=== PATIENT | male | born 1995 | race African-American/Black ===

== ENCOUNTER 2016-12-12 20:54 | Emergency (ER) | payer OTHER ==
[2016-12-12 21:10] VITALS: BP 119/67
--- NOTE | 2016-12-12 22:26 | ER Document Report ---
ED GI/ - General Chief Complaint: Penile Problem Stated Complaint: PENIAL PROBLEM Notes: The patient is a 21-year-old male who presents with 2 days of mild swelling of his foreskin. He is able to retract and reduce his foreskin. He denies pain, dysuria, hematuria, flank pain, sores or concerned about STDs. TRAVEL OUTSIDE OF THE [place] IN LAST 30 DAYS: No - Related Data Allergies/Adverse Reactions: No Known Allergies Allergy (Unverified 12/12/16 21:07) Past Medical History - General Information source: Patient - Social History Smoking Status: Unknown if Ever Smoked Family History: Reviewed & Not Pertinent Patient has suicidal ideation: No Patient has homicidal ideation: No Renal/ Medical History: Denies: Hx Peritoneal Dialysis Review of Systems - Review of Systems Notes: REVIEW OF SYSTEMS: CONSTITUTIONAL: -fevers, -chills EENT: -eye pain, -difficulty swallowing, -nasal congestion CARDIOVASCULAR:-chest pain, -syncope. RESPIRATORY: -cough, -SOB GASTROINTESTINAL: -abdominal pain, -nausea, -vomiting, -diarrhea GENITOURINARY: -dysuria, -hematuria, +swollen foreskin MUSCULOSKELETAL: -back pain, -neck pain HEMATOLOGIC: -easy bruising or bleeding. LYMPHATIC: -swollen, enlarged glands. NEUROLOGICAL: -altered mental status or loss of consciousness, -headache, - neurologic symptoms PSYCHIATRIC: -anxiety, -depression. ALL OTHER SYSTEMS REVIEWED AND NEGATIVE. Physical Exam - Vital signs Vitals: Temp Pulse Resp BP Pulse Ox 98.4 F 50 L 15 119/67 100 12/12/16 21:07 12/12/16 21:07 12/12/16 21:07 12/12/16 21:07 12/12/16 21:07 - Notes Notes: PHYSICAL EXAMINATION: GENERAL: Well-appearing, well-nourished and in no acute distress. HEAD: Atraumatic, normocephalic. EYES: Pupils equal round and reactive to light, extraocular movements intact, sclera anicteric, conjunctiva are normal. ENT: nares patent, oropharynx clear without exudates. Moist mucous membranes. NECK: Normal range of motion, supple without lymphadenopathy LUNGS: Breath sounds clear to auscultation bilaterally and equal. No wheezes rales or rhonchi. HEART: Regular rate and rhythm without murmurs ABDOMEN: Soft, nontender, normoactive bowel sounds. No guarding, no rebound. No masses appreciated. : mild swelling of foreskin, no evidence of paraphimosis or phimosis; no penile discharge or lesions EXTREMITIES: Normal range of motion, no pitting or edema. No cyanosis. NEUROLOGICAL: Cranial nerves grossly intact. Normal speech, normal gait. Normal sensory, motor, and reflex exams. PSYCH: Normal mood, normal affect. SKIN: Warm, Dry, normal turgor, no rashes or lesions noted. Course - Re-evaluation Re-evalutation: No evidence of phimosis or paraphimosis. Total patient to begin Motrin and ice packs for any swelling. Given return precautions and he understands. - Vital Signs Vital signs: Temp Pulse Resp BP Pulse Ox 98.4 F 50 L 15 119/67 100 12/12/16 21:07 12/12/16 21:07 12/12/16 21:07 12/12/16 21:07 12/12/16 21:07 Discharge - Discharge Clinical Impression: Foreskin swelling Condition: Stable Disposition: HOME, SELF-CARE Additional Instructions: Motrin and ice packs for any swelling. If you are unable to reduce your foreskin, then return immediately to the emergency room. NORMAL EXAM AND WORKUP: At this time, your examination and workup show no significant abnormality. No significant abnormal physical findings were noted. All laboratory, EKG, and imaging (x-ray, CT scans, ultrasound) studies that were ordered show no significant abnormality. Although your examination and all studies that were ordered showed no significant abnormal finding, there are no examinations and no studies that are 100% accurate. There is always the possibility that some abnormality could exist and not be detected with physical examination or within the limits and capabilities of laboratory and other studies. You should return or follow up as you were instructed on your visit today for further evaluation if your symptoms do not resolve.
== END 2016-12-12 22:30 | disposition home or self-care (01) ==
LOC: ER 20:54
DX: L98.9 Disorder of the skin and subcutaneous tissue, unspecified (principal)
CPT/HCPCS: 99283

== ENCOUNTER 2018-07-10 11:54 | Emergency (ER) | payer SELFPAY ==
--- NOTE | 2018-07-10 12:57 | ER Document Report ---
ED Extremity Problem, Lower - General Chief Complaint: Knee Pain Stated Complaint: KNEE PAIN Time Seen by Provider: 07/10/18 12:41 Mode of Arrival: Ambulatory Information source: Patient Notes: Patient is a 22-year-old male comes emergency room complaining of right knee pain. Patient states that 2 months ago while he was still in the he was doing jujitsu and somehow his right foot became lodged and the opponent has through patient one way and his knee went the other way and he feels like it was hyperextended at that point. He states that he felt a pop at the time and that it shifted out of joint and then went back into the joint. He saw the doctors they did x-rays and physical exam told him that they did not believe any ligaments were involved but they sent him to physical therapy and treating with pain medications which he says neither one helped. By the time they decided they wanted to do an MRI his time in the was up and so an MRI was never performed. He states that it is now become basically life changing and that he cannot do any climbing his stairs running jumping or any other normal activities of daily living because of the pain and discomfort he has in the right leg. Patient points to the lateral side of the right knee and states this is where it hurts specifically. States there is no other place on the knee that hurts but that right lateral side. Pain increases when he does any ambulation or places weight upon it. As long as he is not ambulatory and is sitting down or laying down there is no pain. He denies any recent injury. TRAVEL OUTSIDE OF THE [place] IN LAST 30 DAYS: No - HPI Patient complains to provider of: Injury, Pain, Swelling Location: Knee - 2 months ago Where: Other - In the during a workout Onset/Duration: Sudden, Persistent Quality of pain: Sharp, Stabbing Pain Level: 3 Context: Twisted Recent injury: Yes Associated symptoms: [place] a pop, Painful ambulation Exacerbated by: Movement, Walking Relieved by: Rest - Related Data Allergies/Adverse Reactions: No Known Allergies Allergy (Unverified 12/12/16 21:07) Past Medical History - General Information source: Patient - Social History Smoking Status: Never Smoker Cigarette use (# per day): No Chew tobacco use (# tins/day): No Smoking Education Provided: No Frequency of alcohol use: None Drug Abuse: None Family History: Reviewed & Not Pertinent Patient has suicidal ideation: No Patient has homicidal ideation: No Renal/ Medical History: Denies: Hx Peritoneal Dialysis Review of Systems - Review of Systems Constitutional: No symptoms reported EENT: No symptoms reported Cardiovascular: No symptoms reported Respiratory: No symptoms reported Gastrointestinal: No symptoms reported Genitourinary: No symptoms reported Male Genitourinary: No symptoms reported Musculoskeletal: See HPI, Joint pain, Muscle pain Skin: No symptoms reported Hematologic/Lymphatic: No symptoms reported Neurological/Psychological: No symptoms reported -: Yes All other systems reviewed and negative Physical Exam - Vital signs Vitals: Temp Pulse Resp BP Pulse Ox 98.6 F 54 L 12 122/63 96 07/10/18 12:09 07/10/18 12:09 07/10/18 12:09 07/10/18 12:09 07/10/18 12:09 Interpretation: Normal, Bradycardic - Is an athlete heart rate probably normal variant - Notes Notes: PHYSICAL EXAMINATION: GENERAL: Well-nourished well-developed 22-year-old male in no apparent distress. HEAD: Atraumatic, normocephalic. EYES: Pupils equal round and reactive to light, extraocular movements intact, sclera anicteric, conjunctiva are normal. ENT: Nares patent, oropharynx clear without exudates. Moist mucous membranes. NECK: Normal range of motion, supple LUNGS: Breath sounds clear to auscultation bilaterally and equal. No wheezes rales or rhonchi. HEART: Bradycardic rate and rhythm without murmurs Musculoskeletal: Examination of area of concern is patient's right knee. Right knee appears to be normal in appearance on visual inspection when compared to the left they both look the same. There is no current swelling or edema. There is no notable effusion. There is no swelling. Patient displays a good popliteal pulse on the right side as well as good dorsalis pedal pulse distally and posterior tibial pulses are 2+ as well on the right leg. He has good cap refill in nailbeds of the toes of the right foot. Patient has good flexion- extension at the ankle. He has normal extension but has a discrepancy in flexion patient is unable to get to 90 degrees secondary to pain and discomfort. Further inspection shows that he has point tenderness on the lateral side of the right knee mid knee area. There is again no crepitus there is no laxity in any direction. But there is increased tenderness on and outward projection of the right knee. NEUROLOGICAL: Normal speech, normal gait. Normal sensory, motor exams PSYCH: Normal mood, normal affect. SKIN: Warm, Dry, normal turgor, no rashes or lesions noted. Course - Re-evaluation Re-evalutation: 07/10/18 14:26 X-ray was found to be negative no acute findings on the right knee. I have explained to patient that this is on the going to need an MRI that we do not do ER. I am giving him a referral to orthopedist professional application designer today which is Dr. Ayoub and see patient can get into see them in since he is gone through physical therapy without any success MRI may be warranted on their end. 07/10/18 14:54 I did go back into discussed with patient his options of either a knee immobilizer or Anson wrap he actually has on a knee compression sleeve now and is only wants to use until he can follow-up with orthopedist. I have informed him to use Tylenol alternate with Motrin or Tylenol Motrin together for pain and discomfort. - Vital Signs Vital signs: Temp Pulse Resp BP Pulse Ox 98.6 F 54 L 12 122/63 96 07/10/18 12:09 07/10/18 12:09 07/10/18 12:09 07/10/18 12:09 07/10/18 12:09 Discharge - Discharge Clinical Impression: Internal derangement of right knee Strain of knee Qualifiers: Encounter type: initial encounter Laterality: right Qualified Code(s): S86.911A - Strain of unspecified muscle(s) and tendon(s) at lower leg level, right leg, initial encounter Condition: Stable Disposition: HOME, SELF-CARE Instructions: Suspected Internal Knee Injury ([facility]), Sprained Knee ([facility]) Additional Instructions: At this point there is little to do out of the emergency room since this is a condition that has been going on for 2 months and has not had any resolution to the problem. You have been without any aids for this long I suggest that you Anson wrap it when you go out and ambulate and then take the Anson wrap off when you are home and resting. Ice to the area 3 times a day. Ibuprofen 800 mg 3 times a day with food. And I am giving you the name of the orthopedist professional application designer today you may contact his office to see if he can accommodate you. Likewise if you do not have a primary care doctor I would highly advise you to get one see if you can get them to order an outpatient MRI and that way when you get an appointment with the orthopedist you can take the results to him. This will speed things up extensively if he really liked and was going on with her knee. In the meantime urine have to continue to baby it I can put you at home knee immobilizer I will leave that up to you since it has been 2 months and no other injuries have occurred. Should you have any concerns return to ER for recheck. Forms: Return to Work Referrals: SCOTT AYOUB, [ACTIVE STAFF] - Follow up as needed
--- NOTE | 2018-07-10 13:56 | RADIOLOGY REPORT (SQ) ---
EXAM DESCRIPTION: KNEE RIGHT 3 VIEWS COMPLETED DATE/TIME: 07/10/2018 1:47 pm REASON FOR STUDY: pAIN COMPARISON: None. NUMBER OF VIEWS: Four views. TECHNIQUE: AP, lateral, and both oblique radiographic images acquired of the right knee. LIMITATIONS: None. FINDINGS: MINERALIZATION: Normal. BONES: No acute fracture or dislocation. No worrisome bone lesions. JOINT: No effusion. SOFT TISSUES: No soft tissue swelling. No radio-opaque foreign body. OTHER: No other significant finding. IMPRESSION: NEGATIVE STUDY OF THE RIGHT KNEE. NO RADIOGRAPHIC EVIDENCE OF ACUTE INJURY. TECHNICAL DOCUMENTATION: JOB ID: [id number] [employer]- All Rights Reserved Reading location - IP/workstation name: [email or web address]
[2018-07-10 15:08] VITALS: BP 115/71
== END 2018-07-10 15:16 | disposition home or self-care (01) ==
LOC: ER 11:54
DX: S86.911A Strain of unspecified muscle(s) and tendon(s) at lower leg level, right leg, initial encounter (principal); M25.561 Pain in right knee; X58.XXXA Exposure to other specified factors, initial encounter; Y93.75 Activity, martial arts
CPT/HCPCS: 99283

== ENCOUNTER → 2018-11-01 | Outpatient (CLI) | payer BC, OTHER ==
--- NOTE | 2018-11-01 12:24 | RADIOLOGY REPORT (SQ) ---
EXAM DESCRIPTION: MRI RT LOWER JOINT WITHOUT COMPLETED DATE/TIME: 11/01/2018 12:02 pm REASON FOR STUDY: R KNEE PAIN M25.561 PAIN IN RIGHT KNEE COMPARISON: None. TECHNIQUE: Rightknee images acquired and stored on PACS. Multiplanar images include fat sensitive s equences as T1, water sensitive sequences as FST2 or STIR, cartilage sensitive sequences as FSPD, and gradient echo sequences. LIMITATIONS: None. FINDINGS: JOINT AND BURSAE: No effusion. BONE CORTEX AND MARROW: No alteration of signal to suggest marrow replacement. No worrisome bone lesi ons. No occult fracture. ACL: Somewhat attenuated appearance in the mid ACL with a old defined ACL fibers. At least some fibe rs are intact. No edema to suggest recent injury. PCL: Intact. MCL: Intact. No periligamentous edema or fluid. LCL: Intact. No periligamentous edema or fluid. MEDIAL MENISCUS: No tears. No abnormal signal. LATERAL MENISCUS: Mildly complex signal some of which extends to the inferior articular surface in th e posterior horn. MEDIAL COMPARTMENT: Cartilage preserved. No bone bruises or reactive marrow edema. No osteophytes. LATERAL COMPARTMENT: Cartilage preserved. No bone bruises or reactive marrow edema. No osteophytes. PATELLA: Normal location. No chondral defects or patellar bone edema. No regional soft tissue edema detected. EXTENSOR MECHANISM: Intact. Quadriceps and patella tendons normal. SOFT TISSUES: Adjacent muscles and subcutaneous tissues normal. Normal flow void in popliteal artery and vein. OTHER: No other significant finding. IMPRESSION: 1. Attenuated ACL suggests previous injury. No evidence of acute injury. 2. Normal patellar location. No chondral defects. 3. Lateral meniscus tear. TECHNICAL DOCUMENTATION: JOB ID: [id number] [employer]- All Rights Reserved Reading location - IP/workstation name: [email or web address]
== END ==
LOC: RAD 10:45
PROVIDERS: ATTEND Physician Assistant
DX: M25.561 Pain in right knee (principal)